=== PATIENT | female | born 1980 | race Caucasian/White ===

== ENCOUNTER 2021-03-01 10:07 | Outpatient (CLI) | payer BC | END 2021-03-01 10:08 | disposition home or self-care (01) | LOC: SCSMRI 10:07 | PROVIDERS: ATTEND Specialist | DX: M47.22 Other spondylosis with radiculopathy, cervical region (principal) | CPT/HCPCS: 72141 ==

== ENCOUNTER 2021-03-15 18:00 | Outpatient (CLI) | payer BC | END 2021-03-15 18:01 | disposition home or self-care (01) | LOC: SLEEPLAB 18:00 | PROVIDERS: ATTEND Family Medicine | DX: G47.33 Obstructive sleep apnea (adult) (pediatric) (principal); R53.83 Other fatigue; R06.83 Snoring; G47.00 Insomnia, unspecified; F41.9 Anxiety disorder, unspecified | CPT/HCPCS: 95806 ==

== ENCOUNTER 2021-09-14 09:00 | Outpatient (CLI) | payer BC ==
[2021-09-14 11:06] LABS: Hemoglobin 13.1 g/dL (12.0-15.5); Mean Corpuscular HGB CONC 32.4 g/dL (32.0-36.0); Mean Corpuscular Hemoglobin 30.3 pg (27.0-33.0); Mean Corpuscular Volume 93.5 fl (81.6-98.3); Mean Platelet Volume 10.4 fl (7.4-10.4); Platelet Count 197 10x3/uL (150-450); RBC Distribution Width 13.2 % (11.5-14.5); Red Blood Cell (RBC) Count 4.32 10x6/uL (3.90-5.03); White Blood Cell (WBC) Count 4.8 10x3/uL (3.5-10.5)
[2021-09-14 11:10] LABS: INR-International Normal Ratio 0.9; Prothrombin Time 10.5 sec (9.5-12.1)
[2021-09-14 11:53] LABS: Anion Gap 9 mmol/L (10-20); BUN (Urea Nitrogen) 17 mg/dL (7.0-18.7); Calc. Creatinine Clearance 0 mL/min (70-130); Calcium 8.7 mg/dL (7.8-10.44); Carbon Dioxide 27 mmol/L (22-29); Chloride 103 mmol/L (98-107); Glucose 94 mg/dL (70-105); Potassium 4.2 mmol/L (3.5-5.1); Sodium 135 mmol/L (136-145)
[2021-09-14 18:26] LABS: SARS-CoV-2 PCR by NAA Not Detected (NotDetected)
== END 2021-09-14 09:01 | disposition home or self-care (01) ==
LOC: LABBT 09:00
PROVIDERS: ATTEND Surgery
DX: Z01.818 Encounter for other preprocedural examination (principal); M50.10 Cervical disc disorder with radiculopathy, unspecified cervical region; Z20.822 Contact with and (suspected) exposure to COVID-19
CPT/HCPCS: 80048; 85027; 85610; 85730; 86850; 86900; 86901; 93005; 93010; U0003; U0005

== ENCOUNTER 2021-09-19 05:47 | Observation (INO) | payer BC ==
[2021-09-12 10:41] VITALS: BMI 25.7
[2021-09-14 11:06] LABS: Hemoglobin 13.1 g/dL (12.0-15.5); Mean Corpuscular HGB CONC 32.4 g/dL (32.0-36.0); Mean Corpuscular Hemoglobin 30.3 pg (27.0-33.0); Mean Corpuscular Volume 93.5 fl (81.6-98.3); Mean Platelet Volume 10.4 fl (7.4-10.4); Platelet Count 197 10x3/uL (150-450); RBC Distribution Width 13.2 % (11.5-14.5); Red Blood Cell (RBC) Count 4.32 10x6/uL (3.90-5.03); White Blood Cell (WBC) Count 4.8 10x3/uL (3.5-10.5)
[2021-09-14 11:10] LABS: INR-International Normal Ratio 0.9; Prothrombin Time 10.5 sec (9.5-12.1)
[2021-09-14 11:53] LABS: Anion Gap 9 mmol/L (10-20); BUN (Urea Nitrogen) 17 mg/dL (7.0-18.7); Calc. Creatinine Clearance 0 mL/min (70-130); Calcium 8.7 mg/dL (7.8-10.44); Carbon Dioxide 27 mmol/L (22-29); Chloride 103 mmol/L (98-107); Glucose 94 mg/dL (70-105); Potassium 4.2 mmol/L (3.5-5.1); Sodium 135 mmol/L (136-145)
[2021-09-14 18:26] LABS: SARS-CoV-2 PCR by NAA Not Detected (NotDetected)
[2021-09-19] MEDS ORDERED: Thrombin 5000 UNITS/5 ML VIAL ONE (06:37)
[2021-09-19] MEDS ORDERED: Fentanyl 250 MCG/5 ML VIAL ONE (07:10)
[2021-09-19] MEDS ORDERED: Midazolam HCl 2 mg/2 ml Vial ONE (07:20)
[2021-09-19] MEDS ORDERED: ceFAZolin 2 GM/Dextrose 50 ML IVPB ONE (07:23)
[2021-09-19] MEDS ORDERED: Rocuronium Bromide 10 MG/ML (10ML VIAL) ONE (07:40)
[2021-09-19] MEDS ORDERED: Lidocaine 1% PF 5 ML VIAL ONE (07:40)
[2021-09-19] MEDS ORDERED: Dexamethasone 20 MG/5 ML VIAL ONE (07:40)
[2021-09-19] MEDS ORDERED: PROPOFOL 200 MG/20 ML VIAL ONE (07:40)
[2021-09-19] MEDS ORDERED: Glycopyrrolate 0.2 MG/ML 5 ML SYRINGE ONE (07:40)
[2021-09-19] MEDS ORDERED: Ondansetron PF 4 MG/2 ML Vial ONE (07:40)
[2021-09-19] MEDS ORDERED: PACU-Morphine 4MG/ML VIAL SLOW IVP PRN (09:16)
[2021-09-19] MEDS ORDERED: HYDROmorphone 2 MG/ML VIAL SLOW IVP PRN (09:16)
[2021-09-19] MEDS ORDERED: Ondansetron HCl/PF 4 MG/2 ML Vial IVP PRN (09:16)
[2021-09-19] MEDS ORDERED: Morphine Sulfate 2 MG/ML SYRINGE SLOW IVP PRN (09:16)
[2021-09-19] MEDS ORDERED: Promethazine HCl 25 MG/ML VIAL IM PRN ×2 (09:16→21:49)
[2021-09-19] MEDS ORDERED: Promethazine HCl 25 MG/ML VIAL IVPB PRN (09:16)
[2021-09-19] MEDS ORDERED: Meperidine HCl/PF 25 MG/ML VIAL SLOW IVP PRN (09:16)
[2021-09-19] MEDS ORDERED: Acetaminophen 325 MG TAB PO PRN (09:50)
[2021-09-19] MEDS ORDERED: traMADol HCl 50 MG TAB PO PRN (09:50)
[2021-09-19] MEDS ORDERED: Acetaminophen/Codeine 30-300mg Tablet PO PRN (09:50)
[2021-09-19] MEDS ORDERED: Cyclobenzaprine 10 MG TAB PO PRN (09:53)
[2021-09-19] MEDS ORDERED: Fentanyl 100 MCG/2 ML VIAL ONE ×3 (10:10→11:31)
[2021-09-19] MEDS ORDERED: HYDROmorphone 0.5 MG/0.5 ML SYRINGE ONE ×2 (11:32→12:26)
[2021-09-19] MEDS ORDERED: Diazepam 10 MG/2 ML SYRINGE IVP SCH (12:30)
[2021-09-19] MEDS ORDERED: Gabapentin 300 MG CAP ONE (14:01)
[2021-09-19] MEDS: Gabapentin 300 MG CAP PO SCH ×2 (14:02→20:21)
[2021-09-19] MEDS ORDERED: ceFAZolin 2 GM/Dextrose 50 ML 2 GM in Premix Bag 1 BAG IVPB SCH (16:00)
[2021-09-19] MEDS: HYDROcodone/Acetaminophen 7.5/325 mg Tablet PO PRN (17:45)
[2021-09-19] MEDS: Sodium Chloride 0.9% 1,000 ML IV SCH ×2 (18:16→23:20)
[2021-09-19] MEDS: Ondansetron PF 4 MG/2 ML Vial IVP PRN (18:19)
[2021-09-19] MEDS: Morphine 4 MG/ML VIAL SLOW IVP PRN ×2 (20:21→22:18)
[2021-09-19] MEDS ORDERED: DULoxetine 60 MG CAP PO SCH (21:00)
[2021-09-19] MEDS: CEFAZOLIN 2 GM, Admixture Fee 1 EACH in Sodium Chloride 0.9% 100 ML IVPB SCH (21:20)
[2021-09-20] MEDS: Ondansetron PF 4 MG/2 ML Vial IVP PRN (00:39)
[2021-09-20] MEDS: Morphine 4 MG/ML VIAL SLOW IVP PRN ×2 (00:39→08:47)
[2021-09-20] MEDS: CEFAZOLIN 2 GM, Admixture Fee 1 EACH in Sodium Chloride 0.9% 100 ML IVPB SCH (02:00)
[2021-09-20] MEDS: HYDROcodone/Acetaminophen 7.5/325 mg Tablet PO PRN ×2 (04:45→11:18)
[2021-09-20] MEDS ORDERED: Ferrous Sulfate 325 MG TAB PO SCH (08:00)
[2021-09-20] MEDS: Gabapentin 300 MG CAP PO SCH (08:46)
[2021-09-20] MEDS ORDERED: Cholecalciferol 1,000 UNITS (25 MCG) TAB PO SCH (09:00)
[2021-09-20] MEDS ORDERED: Magnesium Oxide 250 MG TAB PO SCH (09:00)
[2021-09-20] MEDS ORDERED: Loratadine 10 MG TAB PO SCH (09:00)
[2021-09-20] MEDS ORDERED: NORETHINDRONE 0.35 MG PO SCH (09:00)
[2021-09-20 09:18] VITALS: BP 110/78; TEMP 98.1
[2021-09-20] MEDS ORDERED: FLU VACC QS2021-22(6MOS UP)/PF 60 MCG/0.5 ML SYRINGE IM ONE (17:15)
== END 2021-09-20 12:05 | disposition home or self-care (01) ==
LOC: SDC 05:47 → T4-B 09:49
PROVIDERS: ADMIT Surgery; ATTEND Surgery
PROC: 0RG20A0 Fusion of 2 or more Cervical Vertebral Joints with Interbody Fusion Device, Anterior Approach, Anterior Column, Open Approach (ICD-10-PCS; principal; 2021-09-19)
DX: M50.122 Cervical disc disorder at C5-C6 level with radiculopathy (principal); M50.022 Cervical disc disorder at C5-C6 level with myelopathy; M48.02 Spinal stenosis, cervical region; Z20.822 Contact with and (suspected) exposure to COVID-19; Z79.899 Other long term (current) drug therapy
CPT/HCPCS: 76000; 80048; 85027; 85610; 85730; 86850; 86900; 86901; 96372; 96374; 96375; 96376; C1713; C1776; G0378; J0690; J1100; J1170; J2250; J2270; J2405; J2550; J2704; J3010; J3360; J3490; J7050; U0003; U0005